=== PATIENT | female | born 1955 | race Caucasian/White ===

== ENCOUNTER 2021-09-09 15:43 | Emergency (ER) | payer OTHER ==
[~2021-09-09] VITALS: Ht 165.1 cm; Wt 87.5 kg
[2021-09-09] MEDS ORDERED: TRULICITY0.75 MG/0. SUBQ (15:55)
[2021-09-09] MEDS ORDERED: LEVOTHYROXINE88 MC1 PO (15:55)
[2021-09-09] MEDS ORDERED: COZAAR 25 MG TA25 M2 PO (15:56)
[2021-09-09] MEDS ORDERED: ESTRACE2 M3 PO (15:56)
[2021-09-09] MEDS ORDERED: MELATONIN3 M1 PO (15:57)
[2021-09-09] MEDS ORDERED: ZYRTEC10 M4 PO (15:57)
[2021-09-09] MEDS ORDERED: VITAMIN D310 MC2 PO (15:57)
[2021-09-09] MEDS ORDERED: FLONASE 0.05%50 MCG NARES (15:57)
[2021-09-09] MEDS ORDERED: GINKGO BILOBA120 M1 PO (15:57)
[2021-09-09] MEDS ORDERED: DAILY MULTIVIT1 EAC2 PO (15:57)
--- NOTE | 2021-09-09 17:11 | EKG ---
[place] [address] ELECTROCARDIOGRAM REPORT Name: SMALLSAILEEN Blanche Room: [facility]#: [id number] Admission: 09/09/21 Attend Phys: Discharge: Date of : 53 Date of Service: 09/09/211700 Report #: [id number] THIS REPORT FOR: //name// [facility] ED Test Date: 2021-09-09 Test Time: 17:01:56 Pat Name: AILEEN SMALLS Department: Room: Gender: Rig Operator: MADHAVI : 1955 Requested By: Rod Omer Order Number: [id number] MD: Jose Eduardo Gomez Measurements Intervals [place] Rate: 88 P: 44 GA: 142 QRS: 8 QRSD: 78 T: 59 QT: 338 QTc: 409 Interpretive Statements Sinus tachycardia Atrial premature complexes Low voltage, precordial leads poor r wave progression Minimal ST depression, lateral leads No previous ECG available for comparison Electronically Signed On 09-09-2021 17:11:02 CDT by Jose Eduardo Gomez [email or web address] <ELECTRONICALLY SIGNED> By: Jose Eduardo Gomez MD, [facility] 09/09/211710 00 00 Jose Eduardo Gomez MD, [facility] /EPI
[2021-09-09 17:15] LABS: ABSOLUTE LYMPHOCYTES 1.4 thou/uL (0.8-5.3); ABSOLUTE MONOCYTES 1.1 thou/uL (0.0-1.2); ABSOLUTE NEUTROPHILS 9.2 thou/uL (1.6-8.1); BASOPHILS 0.4 %; EOSINOPHILS 0.4 %; HEMATOCRIT 43.9 % (37.0-47.0); HEMOGLOBIN 14.8 gm/dL (12.0-15.0); LYMPHOCYTES 11.6 %; MCH 30.2 pg (26.0-34.0); MCHC 33.7 g/dL (28.0-37.0); MCV 89.8 fL (80.0-100.0); MPV 7.6 fl. (7.2-11.1); NUCLEATED RBCS 0 /100WBC; PLATELET COUNT* 314 thou/uL (150-400); POLYS 78.6 %; RBC 4.89 mil/uL (4.20-5.00); RDW-CV 13.3 % (10.5-14.5); WBC 11.7 thou/uL (4.0-11.0)
[2021-09-09 17:30] LABS: CALCIUM 9.2 mg/dL (8.5-10.1); CREATININE 1.2 mg/dL (0.6-1.3); POTASSIUM 4.4 mmol/L (3.5-5.1)
[2021-09-09 17:34] LABS: ALBUMIN 3.6 g/dL (3.4-5.0); TOTAL BILIRUBIN 0.5 mg/dL (<0.1-1.0); TOTAL PROTEIN 7.4 g/dL (6.4-8.2)
[2021-09-09] MEDS ORDERED: APAP W/CODEINE1 TA2 PO (19:05)
[2021-09-09] MEDS ORDERED: BACTRIM DS TAB1 EACH PO (19:05)
[2021-09-09] MEDS ORDERED: ONDANSETRON ODT4 MG PO (19:05)
[2021-09-09 19:49] VITALS: BP 132/74
== END 2021-09-09 19:52 | disposition home or self-care (01) ==
LOC: M.ERS 15:43
PROVIDERS: Physician Assistant
DX: R11.2 Nausea with vomiting, unspecified (principal); R10.13 Epigastric pain; R10.33 Periumbilical pain; R53.83 Other fatigue; R19.7 Diarrhea, unspecified; I10 Essential (primary) hypertension; E03.9 Hypothyroidism, unspecified; Z79.899 Other long term (current) drug therapy; Z88.1 Allergy status to other antibiotic agents

== ENCOUNTER 2021-09-18 13:00 | Emergency (ER) | payer OTHER ==
[~2021-09-18] VITALS: Ht 165.1 cm; Wt 89.4 kg
[~2021-09-18 13:00] MED LIST: APAP W/CODEINE1 TA2 PO; BACTRIM DS TAB1 EACH PO; COZAAR 25 MG TA25 M2 PO; DAILY MULTIVIT1 EAC2 PO; ESTRACE2 M3 PO; FLONASE 0.05%50 MCG NARES; GINKGO BILOBA120 M1 PO; LEVOTHYROXINE88 MC1 PO; MELATONIN3 M1 PO; ONDANSETRON ODT4 MG PO; TRULICITY0.75 MG/0. SUBQ; VITAMIN D310 MC2 PO; ZYRTEC10 M4 PO
[2021-09-18 13:47] LABS: ABSOLUTE BASOPHILS 0.1 thou/uL (0.0-0.2); ABSOLUTE LYMPHOCYTES 1.4 thou/uL (0.8-5.3); ABSOLUTE MONOCYTES 0.6 thou/uL (0.0-1.2); ABSOLUTE NEUTROPHILS 7.6 thou/uL (1.6-8.1); BASOPHILS 0.6 %; EOSINOPHILS 0.5 %; HEMATOCRIT 41.6 % (37.0-47.0); HEMOGLOBIN 14.1 gm/dL (12.0-15.0); LYMPHOCYTES 14.2 %; MCH 30.3 pg (26.0-34.0); MCHC 33.9 g/dL (28.0-37.0); MCV 89.5 fL (80.0-100.0); MONOCYTES 5.8 %; MPV 7.5 fl. (7.2-11.1); NUCLEATED RBCS 0 /100WBC; PLATELET COUNT* 340 thou/uL (150-400); POLYS 78.9 %; RBC 4.65 mil/uL (4.20-5.00); RDW-CV 12.8 % (10.5-14.5); WBC 9.6 thou/uL (4.0-11.0)
[2021-09-18 13:55] LABS: POTASSIUM 3.6 mmol/L (3.5-5.1)
[2021-09-18 14:00] LABS: ALBUMIN 3.5 g/dL (3.4-5.0); TOTAL BILIRUBIN 0.3 mg/dL (<0.1-1.0)
[2021-09-18 14:47] LABS: URINE BILIRUBIN NEGATIVE (Negative); URINE BLOOD NEGATIVE (Negative); URINE CLARITY CLEAR; URINE COLOR YELLOW; URINE GLUCOSE-RANDOM NEGATIVE (Negative); URINE KETONES 1+ (Negative); URINE LEUKOCYTES NEGATIVE (Negative); URINE NITRITE NEGATIVE (Negative); URINE PROTEIN NEGATIVE (Negative); URINE SPECIFIC GRAVITY >= 1.030 (1.005-1.030)
[2021-09-18] MEDS ORDERED: COLACE100 MG PO (17:27)
[2021-09-18] MEDS ORDERED: ZOFRAN ODT4 MG PO (17:27)
[2021-09-18] MEDS ORDERED: MAGNESIUM250 M1 PO (17:27)
[2021-09-18 17:45] VITALS: BP 124/62
== END 2021-09-18 17:45 | disposition home or self-care (01) ==
LOC: M.ERS 13:00
PROVIDERS: Physician Assistant
DX: K59.00 Constipation, unspecified (principal); K56.49 Other impaction of intestine; R11.0 Nausea; R74.01 Elevation of levels of liver transaminase levels; E03.9 Hypothyroidism, unspecified; I10 Essential (primary) hypertension; Z91.09 Other allergy status, other than to drugs and biological substances; Z79.891 Long term (current) use of opiate analgesic; Z79.899 Other long term (current) drug therapy; Z79.1 Long term (current) use of non-steroidal anti-inflammatories (NSAID); Z88.8 Allergy status to other drugs, medicaments and biological substances

== ENCOUNTER → 2021-10-10 | Outpatient (CLI) | payer OTHER ==
[~2021-10-10] MED LIST changes: +COLACE100 MG PO; +MAGNESIUM250 M1 PO; +ZOFRAN ODT4 MG PO
== END ==
LOC: M.NUC 07:14
PROVIDERS: ATTEND Family Medicine
DX: K57.90 Diverticulosis of intestine, part unspecified, without perforation or abscess without bleeding (principal); R10.84 Generalized abdominal pain

== ENCOUNTER 2022-01-05 11:30 | Emergency (ER) | payer OTHER ==
[~2022-01-05] VITALS: Ht 165.1 cm; Wt 89.8 kg
[2022-01-05] MEDS ORDERED: PROVERA2.5 MG PO (11:55)
[2022-01-05] MEDS ORDERED: ZYRTEC10 M5 PO (11:57)
[2022-01-05 12:25] LABS: URINE BILIRUBIN NEGATIVE (Negative); URINE BLOOD NEGATIVE (Negative); URINE CLARITY CLEAR; URINE COLOR YELLOW; URINE GLUCOSE-RANDOM NEGATIVE (Negative); URINE KETONES NEGATIVE (Negative); URINE LEUKOCYTES-REFLEX NEGATIVE (Negative); URINE NITRITE-REFLEX NEGATIVE (Negative); URINE PROTEIN NEGATIVE (Negative)
[2022-01-05 12:32] LABS: ABSOLUTE EOSINOPHILS 0.1 thou/uL (0.0-0.7); ABSOLUTE LYMPHOCYTES 1.6 thou/uL (0.8-5.3); ABSOLUTE MONOCYTES 0.9 thou/uL (0.0-1.2); ABSOLUTE NEUTROPHILS 7.8 thou/uL (1.6-8.1); BASOPHILS 0.5 %; EOSINOPHILS 0.9 %; HEMATOCRIT 38.8 % (37.0-47.0); HEMOGLOBIN 13.3 gm/dL (12.0-15.0); LYMPHOCYTES 15.5 %; MCH 30.7 pg (26.0-34.0); MCHC 34.3 g/dL (28.0-37.0); MCV 89.7 fL (80.0-100.0); MONOCYTES 8.9 %; MPV 7.7 fl. (7.2-11.1); NUCLEATED RBCS 0 /100WBC; PLATELET COUNT* 283 thou/uL (150-400); POLYS 74.2 %; RBC 4.32 mil/uL (4.20-5.00); WBC 10.6 thou/uL (4.0-11.0)
[2022-01-05 12:48] LABS: CALCIUM 8.9 mg/dL (8.5-10.1); CREATININE 0.8 mg/dL (0.6-1.3); POTASSIUM 4.3 mmol/L (3.5-5.1)
[2022-01-05 12:52] LABS: ALBUMIN 3.4 g/dL (3.4-5.0); TOTAL BILIRUBIN 0.4 mg/dL (<0.1-1.0); TOTAL PROTEIN 6.7 g/dL (6.4-8.2)
[2022-01-05] MEDS ORDERED: AMOX TR-K CLV1 EAC4 PO (14:52)
[2022-01-05 15:09] VITALS: BP 137/73
--- NOTE | 2022-01-06 11:17 | EKG ---
[place] [address] ELECTROCARDIOGRAM REPORT Name: SMALLSAILEENE Room: [facility]#: [id number] Admission: 01/05/22 Attend Phys: Discharge: 01/05/22 Date of : 53 Date of Service: 01/05/22 1222 Report #: [id number] THIS REPORT FOR: //name// [facility] ED Test Date: 2022-01-05 Test Time: 12:22:30 Pat Name: AILEEN SMALLS Department: Room: Gender: Vending Route Servicer: : 1955 Requested By: Mann Heredia Order Number: [id number] MD: Dayron Kaur Measurements Intervals [place] Rate: 77 P: 40 HI: 145 QRS: 15 QRSD: 81 T: 28 QT: 367 QTc: 416 Interpretive Statements Sinus rhythm Atrial premature complex Probable left atrial enlargement Compared to ECG 09/09/2021 17:01:56 Sinus tachycardia no longer present Poor R-wave progression no longer present ST (T wave) deviation no longer present Electronically Signed On 01-06-2022 11:17:16 CANVAS BASTER by Dayron Kaur [email or web address] <ELECTRONICALLY SIGNED> By: Dayron Kaur MD, [facility] 01/06/22 1117 122 122 Dayron Kaur MD, [facility] /EPI
== END 2022-01-05 15:09 | disposition home or self-care (01) ==
LOC: M.ERS 11:30
PROVIDERS: Physician Assistant Medical
DX: K57.32 Diverticulitis of large intestine without perforation or abscess without bleeding (principal); I10 Essential (primary) hypertension; E03.9 Hypothyroidism, unspecified; Z91.048 Other nonmedicinal substance allergy status; Z79.899 Other long term (current) drug therapy; Z88.8 Allergy status to other drugs, medicaments and biological substances; Z88.1 Allergy status to other antibiotic agents